=== PATIENT | female | born 1930 | race Caucasian/White ===

== ENCOUNTER → 2016-08-06 | Outpatient (CLI) | payer MEDICARE, OTHER ==
[~2016-08-06] MED LIST: CHOL200035 PO; FLEC50TA2 PO; LACT1CAP80 PO; LORA1TAB3 PO; LOSA50TA52 PO; METO-64 PO; MULT1CAP47 PO; PROP10DR2 BOTH EYES; TOLT4CAP12 PO; TRAZ-56 PO; TRIA1CAP6 PO; WARF5TAB6 PO; [UNRECOGNIZED DRUG - CODE] PO
--- NOTE | 2016-08-06 08:43 | DI ---
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 FINDINGS: Both kidneys are present with normal cortical thickness and echogenicity. Right kidney shows no mass lesions or stone disease. Benign appearing 1.3 and 1.8 cm cysts laterally. Left kidney shows a mixed echogenicity mass measuring 3.2 x 2.7 x 2.2 cm, grossly stable from the comparison study allowing for measurement variability. No left-sided hydronephrosis or stone disease. Right kidney measures 8.7 cm in length. Left kidney measures 10.4 cm in length. Impression: Overall stable appearance of the solid appearing left renal mass. .
== END ==
LOC: IMA 07:41
PROVIDERS: ATTEND Specialist
DX: C64.2 Malignant neoplasm of left kidney, except renal pelvis (principal)